=== PATIENT | male | born 1980 | race Caucasian/White ===

== ENCOUNTER 2021-05-29 07:48 | Outpatient (RCR) | payer OTHER, SELFPAY ==
--- NOTE | 2021-05-29 08:54 | PTOPEVAL ---
Thank you for referring Omar Guerrero to [facility].? The patient is scheduled to be seen for therapy? ____x/week for ___ weeks. Please review, sign, date and return this plan of care JAMES. I agree with and certify that the following plan of care is medically necessary. Referring Physician Date Admitting Provider: Attending Provider: ROSALVA MARCUS Referring Provider: *PT Outpatient Evaluation Start: 05/29/21 07:55 Freq: Status: Active Protocol: Document 05/29/21 08:00 [facility] (Rec: 05/29/21 08:51 [facility] [id number]) Therapy Assessment Status Assessment Status Assessment Status Evaluation Evaluation Information Problem Diagnosis R ankle pain, bimalleolar fracture Onset 03/29/21 Additional Evaluation Detail LEFS = 42% functionally declined Subjective Information patient reports he is 50% WB Query Text:As Reported By Patient/ in the R ankle. he reports he Family fractured his R ankle 03/29/21 stepping in a whole. he reports he fell over. he reports this is not a work related injury. he reports he is having difficulty with healing of the ankle. he reports he was released by 1 doc from the boot and wore his normal work boot one day and was unable to get it off due to increased swelling. he reports he is back in a boot now and is supposed to be 50% weight bearing but admits he does not abide by this. he arrives to therapy without any AD this date. he reports he is off work currently. he reports he is off work until he is released again. he reports he has a follow up on 06/22/21 with his MD. he reports he has pain with walking, increased swelling at the end of the day, and difficulty in general being up on his feet. 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 he reports he is not yet back
--- NOTE | 2021-06-22 09:39 | PCPTNOTE ---
06/21/21 - patient has been back to the MD who has cleared him for full return to work. plan to DC patient from skilled PT this date with all progress towards goals taken from his most recent evaluation/note. NOELLE
== END 2021-06-19 18:00 | disposition home or self-care (01) ==
LOC: CHSPT 07:48
DX: M25.571 Pain in right ankle and joints of right foot (principal); S82.841D Displaced bimalleolar fracture of right lower leg, subsequent encounter for closed fracture with routine healing; S82.61XD Displaced fracture of lateral malleolus of right fibula, subsequent encounter for closed fracture with routine healing
CPT/HCPCS: 97016; 97110; 97161

== ENCOUNTER 2021-06-08 09:35 | Outpatient (CLI) | payer OTHER, SELFPAY ==
--- NOTE | ~2021-06-08 | XR_ITS ---
XR scapula LT DATE: 06/08/2021 09:56 INDICATION: Left shoulder blade pain TECHNIQUE: 2 views COMPARISON: None FINDINGS: No fracture of the scapula or bone destruction is evident. Alignment appears intact at the acromioclavicular and glenohumeral joints. IMPRESSION: Negative Reviewed, dictated and finalized at location B. IMPRESSION: Negative
== END 2021-06-08 09:36 | disposition home or self-care (01) ==
LOC: CHSIMG 09:38
PROVIDERS: PCP Physician Assistant; Visit Provider Physician Assistant
DX: M25.512 Pain in left shoulder (principal)
CPT/HCPCS: 73010

== ENCOUNTER 2025-02-08 15:12 | Outpatient (CLI) | payer OTHER, SELFPAY ==
--- NOTE | ~2025-02-08 | XR_ITS ---
EXAM: XR shoulder RT min 2V DATE: 02/08/2025 15:25 HISTORY: acute right shoulder pain, pulled injury this am . COMPARISON: 10/13/2024. FINDINGS: Normal mineralization. No fracture or dislocation. No lytic or blastic lesion. Mild degene rative changes. No erosion or periosteal change. Soft tissues within normal limits. IMPRESSION: No acute osseous finding in the right shoulder. If pain persists or clinical suspicion of injury is high, recommend MRI of the shoulder for further evaluation. Reviewed, dictated and finalized at location K. IMPRESSION: No acute osseous finding in the right shoulder. If pain persists or clinical suspicion of injury is high, recommend MRI of the shoulder for furthe r evaluation.
== END 2025-02-08 15:13 | disposition home or self-care (01) ==
LOC: CHSIMG 15:14
PROVIDERS: PCP Physician Assistant; Visit Provider Physician Assistant
DX: M25.511 Pain in right shoulder (principal)
CPT/HCPCS: 73030

== ENCOUNTER 2025-02-20 09:51 | Outpatient (CLI) | payer OTHER, SELFPAY ==
--- NOTE | ~2025-02-20 | MR_ITS ---
MRI of the right shoulder Technique: Axial proton-density fat-sat images, coronal proton density fat-sat and T2 fat-sat images, and sagittal T1-weighted and T2 fat-sat images were acquired. Clinical History: Pain Findings: There is mild AC joint degenerative change. Cortical clavicular, coracoacromial, and coraco humeral ligaments are intact. There is a probable 1.3 x 1.0 cm area of high-grade, probable full thickness tearing at the anterior, distal supraspinatus tendon insertion. Infraspinatus tendon is intact. Subscapularis tendon is intac t. Tendon of long head of the biceps is intact. No labral tear evident. Inferior glenohumeral ligament is intact. No degenerative change or effusion of the glenohumeral join t. There is minimal fluid in the subacromial/subdeltoid bursa. No muscle atrophy or edema evident. Impression: 1.3 x 1.0 cm area of high-grade, probable full-thickness tearing at the distal, anterior supraspinatu s tendon insertion. Reviewed, dictated and finalized at location . Impression: 1.3 x 1.0 cm area of high-grade, probable full-thickness tearing at the distal, anterior supraspinatus tendon insertion.
== END 2025-02-20 09:52 | disposition home or self-care (01) ==
LOC: CHSIMG 09:56
PROVIDERS: PCP Physician Assistant; Visit Provider Physician Assistant
DX: M25.511 Pain in right shoulder (principal); M75.101 Unspecified rotator cuff tear or rupture of right shoulder, not specified as traumatic
CPT/HCPCS: 73221